=== PATIENT | male | born 1945 ===

== ENCOUNTER 2016-11-24 13:55 | Emergency (ER) | payer MEDICARE ==
[~2016-11-24] VITALS: Ht 167.6 cm; Wt 65.0 kg
[2016-11-24 13:59] VITALS: BP 162/94; PULSE 88; RESP 18; TEMP 98.6; O2SAT 89
[2016-11-24] MEDS ORDERED: SODIUM CHLORIDE 0.9% FLUSH 5 ML FLUSH IV FLUSH PRN (14:15)
--- NOTE | 2016-11-24 14:18 | PD ---
HPI Chief Complaint: Fall Time Seen by Provider: 14:00 Travel History International Travel<30 days: No Contact w/Intl Traveler<30days: No Traveled to known affect area: No History of Present Illness HPI 71-year-old male with PMH of vascular dementia, multiple falls, nonverbal at baseline presents to the ED via EMS for evaluation after an unwitnessed fall at [facility]. Per paperwork the patient was found down with a large laceration to forehead. The patient is unable to provide any further history. PFSH Social History Tobacco Use: No Allergies-Medications (Allergen,Severity, Reaction): Coded Allergies: No Known Allergies (Unverified , 11/24/16) Reported Meds & Prescriptions Reported Meds & Active Scripts Active Reported Celexa (Citalopram Hydrobromide) 10 Mg Tab 10 Mg PO DAILY Dulcolax Supp (Bisacodyl) 10 Mg Supp 10 Mg RECTAL DAILY PRN Enema Disposable (Sodium Phosphates) 1 Brandy Brandy 1 Applic RECTAL DAILY PRN Depakote Sprinkles (Divalproex Sodium) 125 mg Cap 500 Mg PO BID Milk of Magnesia Liq (Magnesium Hydroxide) 400 Mg/5 Ml Susp 30 Ml PO DAILY PRN Senna S (Sennosides-Docusate Sodium) 8.6-50 Mg Tab 2 Tab PO BID Zofran (Ondansetron HCl) 4 Mg Tab 4 Mg PO Q6HR PRN Aspirin Adult Low Strength (Aspirin) 81 Mg Tabdr 81 Mg PO DAILY Xtampza ER (Oxycodone) 9 Mg Cap 9 Mg PO Q12HR Seroquel (Quetiapine Fumarate) 100 Mg Tab 100 Mg PO BID Metoprolol Tartrate 25 Mg Tab 25 Mg PO Q12HR Hold for SBP <110 or DBP <60 Tylenol (Acetaminophen) 325 Mg Tab 650 Mg PO Q4H PRN Ativan (Lorazepam) 1 Mg Tab 1 Mg PO Q4H PRN Haloperidol 0.5 Mg Tab 0.5 Mg PO Q6HR PRN Ativan (Lorazepam) 1 Mg Tab 1 Mg PO Q8H Review of Systems ROS Limitations: Other: (unable to obtain) Except as stated in HPI: all other systems reviewed are Neg (unable to obtain) Physical Exam Narrative GENERAL: Thin white male in no acute distress. Wearing a c-collar. SKIN: Focused skin assessment warm/dry. There is a 4 cm laceration midline of the forehead. Multiple ecchymosis and skin tears in various stages of healing throughout the skin surface. No signs of infection. HEAD: Normocephalic. EYES: No scleral icterus. No injection or drainage. PERRLA. NECK: Supple, trachea midline. No JVD or lymphadenopathy. CARDIOVASCULAR: Regular rate and rhythm without murmurs, gallops, or rubs. RESPIRATORY: Breath sounds clear and equal bilaterally. No accessory muscle use. GASTROINTESTINAL: Abdomen soft, non-tender, nondistended. Active bowel sounds. MUSCULOSKELETAL: No cyanosis, or edema. Contractures of the upper and lower extremities bilaterally. BACK: Nontender. . No CVA tenderness. Data Data Last Documented VS Vital Signs Date Time Temp Pulse Resp B/P Pulse Ox O2 Delivery O2 Flow Rate FiO2 11/24/16 19:00 86 17 Nasal Cannula 2 96 11/24/16 18:59 145/83 96 11/24/16 13:59 98.6 Orders Complete Blood Count With Diff (11/24/16 14:12) Comprehensive Metabolic Panel (11/24/16 14:12) Creatine Kinase (Cpk) (11/24/16 14:12) Troponin I (11/24/16 14:12) Urinalysis - C+S If Indicated (11/24/16 14:12) Chest, Single Ap (11/24/16 14:12) Ct Brain W/O Iv Contrast(Rout) (11/24/16 14:12) Blood Glucose (11/24/16 14:12) Ecg Monitoring (11/24/16 14:12) Iv Access Insert/Monitor (11/24/16 14:12) Oximetry (11/24/16 14:12) Sodium Chloride 0.9% Flush (Ns Flush) (11/24/16 14:15) Ct Cerv Spine W/O Contrast (11/24/16 14:12) Electrocardiogram (11/24/16 14:12) Cath For Specimen (11/24/16 14:31) Lidocaine 1% Inj (50 Ml) (Xylocaine 1% I (11/24/16 15:00) Haloperidol Inj (Haldol Inj) (11/24/16 15:00) Tetanus/Diphtheria Tox Adult (Tetanus/Di (11/24/16 17:30) B-Type Natriuretic Peptide (11/24/16 17:28) Labs Laboratory Tests Test 11/24/16 11/24/16 14:58 17:50 White Blood Count 11.8 TH/MM3 Red Blood Count 4.39 MIL/MM3 Hemoglobin 12.1 GM/DL Hematocrit 38.0 % Mean Corpuscular Volume 86.7 FL Mean Corpuscular Hemoglobin 27.6 PG Mean Corpuscular Hemoglobin 31.8 % Concent Red Cell Distribution Width 18.3 % Platelet Count 199 TH/MM3 Mean Platelet Volume 7.8 FL Neutrophils (%) (Auto) 63.7 % Lymphocytes (%) (Auto) 22.8 % Monocytes (%) (Auto) 10.4 % Eosinophils (%) (Auto) 2.7 % Basophils (%) (Auto) 0.4 % Neutrophils # (Auto) 7.5 TH/MM3 Lymphocytes # (Auto) 2.7 TH/MM3 Monocytes # (Auto) 1.2 TH/MM3 Eosinophils # (Auto) 0.3 TH/MM3 Basophils # (Auto) 0.0 TH/MM3 CBC Comment DIFF FINAL Differential Comment Sodium Level 141 MEQ/L Potassium Level 4.3 MEQ/L Chloride Level 101 MEQ/L Carbon Dioxide Level 29.7 MEQ/L Anion Gap 10 MEQ/L Blood Urea Nitrogen 24 MG/DL Creatinine 1.26 MG/DL Estimat Glomerular Filtration 56 ML/MIN Rate Random Glucose 112 MG/DL Calcium Level 8.7 MG/DL Total Bilirubin 0.3 MG/DL Aspartate Amino Transf 21 U/L (AST/SGOT) Alanine Aminotransferase 19 U/L (ALT/SGPT) Alkaline Phosphatase 87 U/L Total Creatine Kinase 245 U/L Troponin I 0.02 NG/ML B-Type Natriuretic Peptide 121 PG/ML Total Protein 7.4 GM/DL Albumin 2.9 GM/DL Urine Color YELLOW Urine Turbidity CLEAR Urine pH 6.5 Urine Specific Cullen 1.022 Urine Protein TRACE mg/dL Urine Glucose (UA) NEG mg/dL Urine Ketones NEG mg/dL Urine Occult Blood NEG Urine Nitrite NEG Urine Bilirubin NEG Urine Urobilinogen 4.0 MG/DL Urine Leukocyte Esterase NEG Urine RBC 1 /hpf Urine WBC 1 /hpf Urine Mucus FEW /lpf Microscopic Urinalysis Comment CATH-CULT NOT IND MDM Medical Decision Making Medical Screen Exam Complete: Yes Emergency Medical Condition: Yes Differential Diagnosis mechanical fall versus scalp laceration versus skull fracture versus cervical spinal fracture versus subluxation versus ACS versus PNA versus UTI versus other Narrative Course 71-year-old male with PMH of vascular dementia, multiple falls, nonverbal at baseline presents to the ED via EMS for evaluation after an unwitnessed fall at SNF. Per paperwork the patient was found down with a large laceration to forehead. The patient is unable to provide any further history. Vitals reviewed. Patient's O2 sats 88% ORA, improved to the mid 93% with 2 L NC. There is a 4 cm laceration of the midline forehead, subcentimeter laceration of the bridge of the nose, multiple skin abrasion in various stages of healing on the extremities. No signs of infection. Chest CTAB, abdomen soft. No edema of the lower extremities. Laceration repair was performed. Tetanus updated. CBC: WBC 11.8, HGB 12.1 CMP: no concerning abnormalities UA: no culture indicated EKG: Rate 107, sinus rhythm. WV interval 161, QRS 108, QTC 409. ST changes in the lateral leads. Reviewed by Dr. Alexander CXR: prominent interstitial markings in the upper lobes bilaterally, uncertain chronicity. Cardiac enzymes: negative x 1 BNP: 121 CT brain: No acute findings. CT cervical spine: No acute findings. O2 sats dropped to 88% when 2 L nasal cannula is discontinued. According to paperwork accompanying him he was evaluated for respiratory tuberculosis in September. No evidence of cavitary lesions on the chest x-ray. I spoke with Ileana, the patient's nurse at the [facility]. She states that he is on 3 L by nasal cannula daily. He's stable and discharged home. Procedures Procedure Narrative LACERATION LOCATION: Midline of the forehead LENGTH: 4 cm NUMBER OF STITCHES/MIK: 7 REPAIR: The area of the laceration was prepped with Betadine and sterilely draped. The laceration was infiltrated with 1% lidocaine. The wound was copiously irrigated and explored without evidence of foreign body, tendon injury or neurovascular injury. The wound was closed using 4-0 Prolene. This was a single layer repair. A sterile dressing was applied. The patient was advised to keep the dressing clean and dry. Patient tolerated the procedure well. Diagnosis Primary Impression: Scalp laceration Qualified Code: S01.01XA - Scalp laceration, initial encounter Additional Impression: Fall Qualified Code: W19.XXXA - Fall, initial encounter Referrals: Primary Care Physician Patient Instructions: Care For Your Stitches (ED), General Instructions, Laceration (ED) Additional Instructions: Rest, hydrate. Do not change the dressing for 24 hours. . You may bathe normally. Do not submerge the wound. After bathing pat of wound dry. Allow the wound to air dry for 10-15 minutes. Apply a thin layer of antibiotic ointment and a clean, dry dressing. Utilize [id number] pain medications, as described on the label, as needed. Suture removal in 10-14 days. Follow-up with the primary care provider. Return to the ED for any urgent or emergent medical condition. Disposition: 01 DISCHARGE HOME Condition: Stable Ruchi Estrada Nov 24, 2016 14:18
[2016-11-24] MEDS ORDERED: HALOPERIDOL LACTATE 5 MG/ML AMP IM ONE (15:00)
[2016-11-24] MEDS ORDERED: LIDOCAINE HCL 1% 50 ML VIAL INFIL ONE (15:00)
[2016-11-24 15:18] VITALS: O2SAT 93
[2016-11-24 15:22] LABS: AUTOMATED NEUTROPHIL # 7.5 TH/MM3 (1.8-7.7); BASOPHIL % 0.4 % (0.0-2.0); EOSINOPHIL # 0.3 TH/MM3 (0-0.4); EOSINOPHIL % 2.7 % (0.0-4.0); HEMO FLAGS DIFF FINAL; LYMPH % 22.8 % (9.0-44.0); LYMPHOCYTE # 2.7 TH/MM3 (1.0-4.8); MEAN CELL VOLUME 86.7 FL (80.0-100.0); MEAN CORPUSCULAR HEMOGLOBIN 27.6 PG (27.0-34.0); MEAN CORPUSCULAR HGB CONC 31.8 % (32.0-36.0); MONO % 10.4 % (0.0-8.0); NEUT % 63.7 % (16.0-70.0); PLATELET COUNT 199 TH/MM3 (150-450); RED BLOOD COUNT 4.39 MIL/MM3 (4.50-5.90); RED CELL DISTRIBUTION WIDTH 18.3 % (11.6-17.2); WHITE BLOOD COUNT 11.8 TH/MM3 (4.0-11.0)
--- NOTE | 2016-11-24 15:25 | EKG ---
Date Performed: 11/24/2016 Time Performed: 15:05:12 PTAGE: 71 years EKG: SINUS TACHYCARDIA LEFT ANTERIOR FASCICULAR BLOCK LEFT VENTRICULAR HYPERTROPHY AND ST-T MARIE GE ANTEROLATERAL MYOCARDIAL INFARCTION ABNORMAL ECG NO PREVIOUS TRACING DOCTOR: Dayday Fabian Interpretating Date/Time 11/24/2016 15:25:35
[2016-11-24 15:44] LABS: ALKALINE PHOSPHATASE 87 U/L (45-117); CREATINE KINASE 245 U/L (39-308); TOTAL BILIRUBIN ADULT 0.3 MG/DL (0.2-1.0)
[2016-11-24 15:48] LABS: ALT (GPT) 19 U/L (12-78); ANION GAP 10 MEQ/L (5-15); AST (GOT) 21 U/L (15-37); BICARBONATE 29.7 MEQ/L (21.0-32.0); BLOOD UREA NITROGEN 24 MG/DL (7-18); CHLORIDE 101 MEQ/L (98-107); GLOMERULAR FILTRATION RATE 56 ML/MIN (>89); POTASSIUM 4.3 MEQ/L (3.5-5.1); SODIUM (NA) 141 MEQ/L (136-145)
--- NOTE | 2016-11-24 15:54 | RADRPT ---
EXAM DATE/TIME: 11/24/2016 15:39 [facility] COMPARISON: No previous studies available for comparison. INDICATIONS : Trauma from a fall today. RADIATION DOSE: 34.22 CTDIvol (mGy) MEDICAL HISTORY : Hx of falls. SURGICAL HISTORY : Non-responsive. ENCOUNTER: Initial ACUITY: 1 day PAIN SCALE: 1/10 LOCATION: cranial TECHNIQUE: Multiple contiguous axial images were obtained of the head. Using automated exposure control and adj ustment of the mA and/or kV according to patient size, radiation dose was kept as low as reasonably a chievable to obtain optimal diagnostic quality images. DICOM format image data is available electro nically for review and comparison. FINDINGS: Diffuse hypodensity is identified throughout the cerebral white matter. Left-sided deep white matter infarct is seen which appears old. There is no evidence of acute infarct, hemorrhage, mass or contusion. Soft tissue swelling is seen al helene the forehead. Mildly depressed fracture is identified of the nasal bone. CONCLUSION: Advanced chronic ischemic white matter disease with evidence of old left-sided deep white matter infa rct No evidence of acute infarct, hemorrhage, mass or edema. Small forehead cephalohematoma. Mildly depressed nasal bone fracture. Curt Baez MD on November 24, 2016 at 15:48 Board Certified Radiologist. This report was verified electronically.
[2016-11-24 16:10] VITALS: BP 130/73; PULSE 108; RESP 16; O2SAT 93
--- NOTE | 2016-11-24 16:27 | RADRPT ---
EXAM DATE/TIME: 11/24/2016 15:40 [facility] COMPARISON: No previous studies available for comparison. INDICATIONS : Syncope. MEDICAL HISTORY : None. SURGICAL HISTORY : None. ENCOUNTER: Initial ACUITY: 1 day PAIN SCORE: Non-responsive. LOCATION: Bilateral chest FINDINGS: The heart is normal. Increased interstitial markings are noted within the upper lobes bilaterally co nsistent with acute or chronic interstitial disease. Degenerative changes and scoliosis of the thora cic spine are noted. CONCLUSION: 1. Increased interstitial markings within the upper lobes bilaterally consistent with acute or chron ic interstitial disease. Clinical correlation is recommended. Brandyn Zaman MD on November 24, 2016 at 16:12 Board Certified Radiologist. This report was verified electronically.
--- NOTE | 2016-11-24 16:33 | RADRPT ---
EXAM DATE/TIME: 11/24/2016 15:43 [facility] COMPARISON: No previous studies available for comparison. INDICATIONS : Trauma from fall today. RADIATION DOSE: 33.54 CTDIvol (mGy) MEDICAL HISTORY : Non-responsive. Hx of falls. SURGICAL HISTORY : Non-responsive. ENCOUNTER: Initial ACUITY: 1 day PAIN SCALE: 0/10 LOCATION: Neck TECHNIQUE: Volumetric scanning of the cervical spine was performed. Multiplanar reconstructions in the sagittal, coronal and oblique axial planes were performed. Using automated exposure control and adjustment o f the mA and/or kV according to patient size, radiation dose was kept as low as reasonably achievable to obtain optimal diagnostic quality images. DICOM format image data is available electronically f or review and comparison. FINDINGS: There is no acute fracture or prevertebral soft tissue swelling. Cervical spondylosis is noted at C3 -4, C4-5 and C5-6. No spinal stenosis is noted. The bony relationship and alignment between C1 and C2 is well maintained. Scoliosis of the cervicothoracic spine is noted. Emphysematous changes are n oted involving the lung apices. CONCLUSION: 1. No acute fracture or prevertebral soft tissue swelling. 2. Cervical spondylosis from C3 through C6. 3. Scoliosis of the cervicothoracic spine. 4. Emphysematous changes involving the lung apices. Brandyn Zaman MD on November 24, 2016 at 16:16 Board Certified Radiologist. This report was verified electronically.
--- NOTE | 2016-11-24 16:53 | PD ---
Data Data Last Documented VS Vital Signs Date Time Temp Pulse Resp B/P Pulse Ox O2 Delivery O2 Flow Rate FiO2 11/24/16 16:10 108 16 130/73 93 Nasal Cannula 2 11/24/16 13:59 98.6 Orders Complete Blood Count With Diff (11/24/16 14:12) Comprehensive Metabolic Panel (11/24/16 14:12) Creatine Kinase (Cpk) (11/24/16 14:12) Troponin I (11/24/16 14:12) Urinalysis - C+S If Indicated (11/24/16 14:12) Chest, Single Ap (11/24/16 14:12) Ct Brain W/O Iv Contrast(Rout) (11/24/16 14:12) Blood Glucose (11/24/16 14:12) Ecg Monitoring (11/24/16 14:12) Iv Access Insert/Monitor (11/24/16 14:12) Oximetry (11/24/16 14:12) Sodium Chloride 0.9% Flush (Ns Flush) (11/24/16 14:15) Ct Cerv Spine W/O Contrast (11/24/16 14:12) Electrocardiogram (11/24/16 14:12) Cath For Specimen (11/24/16 14:31) Lidocaine 1% Inj (50 Ml) (Xylocaine 1% I (11/24/16 15:00) Haloperidol Inj (Haldol Inj) (11/24/16 15:00) Labs Laboratory Tests Test 11/24/16 14:58 White Blood Count 11.8 TH/MM3 Red Blood Count 4.39 MIL/MM3 Hemoglobin 12.1 GM/DL Hematocrit 38.0 % Mean Corpuscular Volume 86.7 FL Mean Corpuscular Hemoglobin 27.6 PG Mean Corpuscular Hemoglobin 31.8 % Concent Red Cell Distribution Width 18.3 % Platelet Count 199 TH/MM3 Mean Platelet Volume 7.8 FL Neutrophils (%) (Auto) 63.7 % Lymphocytes (%) (Auto) 22.8 % Monocytes (%) (Auto) 10.4 % Eosinophils (%) (Auto) 2.7 % Basophils (%) (Auto) 0.4 % Neutrophils # (Auto) 7.5 TH/MM3 Lymphocytes # (Auto) 2.7 TH/MM3 Monocytes # (Auto) 1.2 TH/MM3 Eosinophils # (Auto) 0.3 TH/MM3 Basophils # (Auto) 0.0 TH/MM3 CBC Comment DIFF FINAL Differential Comment Sodium Level 141 MEQ/L Potassium Level 4.3 MEQ/L Chloride Level 101 MEQ/L Carbon Dioxide Level 29.7 MEQ/L Anion Gap 10 MEQ/L Blood Urea Nitrogen 24 MG/DL Creatinine 1.26 MG/DL Estimat Glomerular Filtration 56 ML/MIN Rate Random Glucose 112 MG/DL Calcium Level 8.7 MG/DL Total Bilirubin 0.3 MG/DL Aspartate Amino Transf 21 U/L (AST/SGOT) Alanine Aminotransferase 19 U/L (ALT/SGPT) Alkaline Phosphatase 87 U/L Total Creatine Kinase 245 U/L Troponin I 0.02 NG/ML Total Protein 7.4 GM/DL Albumin 2.9 GM/DL MDM Supervised Visit with SERVANDO: Yes Narrative Course The history, exam, and medical decision-making in the associated mid-level provider note were completed with my assistance. I reviewed and agree with the findings presented. I attest that I had a [id number] encounter with the patient on the same day, and personally performed and documented my assessment and findings in the medical record. *My assessment and Findings: This 71-year-old man, nonverbal with vascular dementia, presents emergency room from nursing facility after he was found down presumed of follow-up with a large laceration to his forehead. No real history is available beyond that. He is contracted,. Bed bound, has a cut on his forehead that is not bleeding. Is no other obvious evidence of trauma. His oxygen saturations are low with no history of lung disease. We'll check an initial workup including CT head and neck, chest x-ray, labs, unremarkable medial to be discharged back to nursing facility following laceration repair. Jose Alexander MD Nov 24, 2016 16:53
[2016-11-24] MEDS ORDERED: TETANUS/DIPHTHERIA TOXOID ADULT 0.5 ML VIAL IM ONE (17:30)
[2016-11-24 18:22] LABS: BLOOD, URINE NEG (NEG); GLUCOSE,URINE NEG (NEG); KETONE, URINE NEG (NEG); MUCUS URINE FEW /lpf (OCC); NITRITE,URINE NEG (NEG); PH, URINE 6.5 (5.0-8.5); URINE COLOR YELLOW (YELLW/STRAW)
[2016-11-24 18:25] LABS: COMMENT (UR) CATH-CULT NOT IND; CULTURE IF INDICATED CATH CULTURE NOT IND
[2016-11-24 18:44] VITALS: BP 128/98; PULSE 114; RESP 16; O2SAT 89; O2SAT 96
[2016-11-24 18:59] VITALS: BP 145/83; PULSE 114; RESP 17; O2SAT 96
[2016-11-24] MEDS ORDERED: HALO0.5T PO (19:15)
[2016-11-24] MEDS ORDERED: METO25TA3 PO (19:15)
[2016-11-24] MEDS ORDERED: TYLE325T PO (19:15)
[2016-11-24] MEDS ORDERED: LORA-474 PO ×2 (19:15)
[2016-11-24] MEDS ORDERED: CELE10TA PO (19:16)
[2016-11-24] MEDS ORDERED: DULC10SU3 RECTAL (19:16)
[2016-11-24] MEDS ORDERED: ENEMENE5 RECTAL (19:16)
[2016-11-24] MEDS ORDERED: OXYC5CAP43 PO (19:16)
[2016-11-24] MEDS ORDERED: SERO100T PO (19:16)
[2016-11-24] MEDS ORDERED: ASPI1TAB91 PO (19:16)
[2016-11-24] MEDS ORDERED: SENN8.6T8 PO (19:16)
[2016-11-24] MEDS ORDERED: MILKSUS PO (19:16)
[2016-11-24] MEDS ORDERED: DIVA125C PO (19:16)
[2016-11-24] MEDS ORDERED: ZOFR4TAB PO (19:16)
[2016-11-25 01:00] VITALS: BP 142/78; PULSE 95; RESP 17; O2SAT 95
== END 2016-11-25 06:51 | disposition home or self-care (01) ==
LOC: NEPD 13:55
DX: S01.01XA Laceration without foreign body of scalp, initial encounter (principal); S01.21XA Laceration without foreign body of nose, initial encounter; F01.50 Vascular dementia, unspecified severity, without behavioral disturbance, psychotic disturbance, mood disturbance, and anxiety; Z79.82 Long term (current) use of aspirin; Z79.899 Other long term (current) drug therapy; W19.XXXA Unspecified fall, initial encounter; R94.31 Abnormal electrocardiogram [ECG] [EKG]; R00.0 Tachycardia, unspecified
CPT/HCPCS: 12013; 70450; 71010; 72125; 80053; 81001; 82550; 83880; 84484; 85025; 90471; 90714; 93005; 96372; 99285; J1630; P9612